=== PATIENT | male | born 1955 | race American Indian/Alaskan Native ===

== ENCOUNTER 2019-05-11 09:12 | Day surgery (SDC) | payer OTHER ==
[~2019-05-11 09:12] MED LIST: SODIUM CHLORIDE 0.9% 1000 ML 1,000 ML IV SCH
[2019-05-11] MEDS ORDERED: MIDAZOLAM 2 MG/2 ML INJ ONE (09:56)
--- NOTE | 2019-05-11 10:03 | Anesthesia Day of Surgery ---
Anesthesia Day of Surgery - Day of Surgery Patient Examined: Yes Patient H&P Reviewed: Yes Patient is NPO: Yes
--- NOTE | 2019-05-11 10:07 | Anesthesia Consultation ---
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
[2019-05-11] MEDS ORDERED: WATER FOR IRRIG STERILE 250 ML BOTTLE IR ONE (10:19)
[2019-05-11] MEDS ORDERED: PROPOFOL 200 MG/20 ML VIAL IV ONE ×2 (10:30)
--- NOTE | 2019-05-11 11:14 | Procedure Note ---
Date of procedure: 05/11/19 Pre-op diagnosis: Colon Polyp Screening and P/H/O colon Polyps Post-op diagnosis: other (Multiple Smal Recto-Sigmoid and Descending colon Poyps (possibly Hyperplastic) and one Medium sized Ascending Colon) Procedure: Colonoscopy with Cold Biopsy and Cold Snare Polypectomy Anesthesia: MAC Surgeon: RALPH CATALAN Estimated blood loss: minimal Pathology: list Specimen disposition: to lab Condition: stable Disposition: same day (Multiple smal Recto S-gmoid and Descending colon Polyps (possibly Hyperplastic) and one Medium Descending colon Polyp (possilby tubular adnenoma)/Minor,Left Colon diverticuli and Mild to Moderate Internal Hemorrhoid)
--- NOTE | 2019-05-11 11:33 | Operative Report ---
PROCEDURE: Colonoscopy with biopsy and cold snare polypectomy. INDICATIONS: A 63-year-old gentleman who has prior history of colon polyp. Last colonoscopy was several years ago. Colonoscopy was done to make sure there was not any recurrence of any polyps. DESCRIPTION OF PROCEDURE: Procedure was done after getting informed consent with MAC anesthesia. Initial rectal exam was unremarkable. Instrument was passed through the rectum onto the cecum, which was identified with ileocecal valve and appendiceal orifice. Visualization was fair to good. The cecum showed normal mucosa. In the ascending colon, there was a 10 mm sessile polyp removed by cold snare polypectomy and retrieved. There was a smaller 7-8 mm polyp noted in the mid transverse colon that was removed by cold biopsy, which may have been hyperplastic in type and the remaining part of the transverse colon showed normal mucosa. There were a few minor diverticula noted in the left colon. In the descending colon, there was 1 small polyp also about 7 mm in diameter, removed by cold biopsy and the rectosigmoid area had several small possibly hyperplastic polyps, similarly removed by cold biopsy. There was minimal bleeding from the biopsy sites and no complications associated with the procedure. ASSESSMENT: Colon polyp screening, past history of colon polyps, multiple small polyps involving the rectosigmoid and left colon, possibly hyperplastic in type, 1 medium sized polyp in the ascending colon that was removed by cold snare polypectomy and possibly may have been a tubular adenoma. There was minor left colon diverticula and mild to moderate internal hemorrhoid. There was minimal bleeding from the polypectomy sites and no complications associated with the procedure. The patient will be asked to avoid aspirin and aspirin-related products and anticoagulants for the next 4 days, but resume home medication. The patient will also be encouraged to take fiber supplements and follow up in the office in 1-2 weeks' time. The procedure was done in the GI lab with assistance of the GI lab team, which included RN, Noy Stout, bertrand Guerra and with assistance of anesthesia. JOB# [id number] GAUDENCIO/LAURITA
[2019-05-11 11:37] VITALS: BP 135/87
--- NOTE | 2019-05-11 11:51 | Post Anesthesia Evaluation ---
- Post Anesthesia Evaluation Patient Participated: Yes Airway Patent: Yes Stable Respiratory Function: Yes Nausea/Vomiting: No Temp > 96.8F: Yes Pain Manageable: Yes Adequeate Hydration: Yes Anesthesia Complications: No Block Receding Appropriately: Not Applicable Patient on Ventilator: No
== END 2019-05-11 09:13 | disposition home or self-care (01) ==
LOC: GIO 09:12
DX: Z12.11 Encounter for screening for malignant neoplasm of colon (principal); D12.2 Benign neoplasm of ascending colon; K63.89 Other specified diseases of intestine; K57.30 Diverticulosis of large intestine without perforation or abscess without bleeding; K64.8 Other hemorrhoids; G47.30 Sleep apnea, unspecified; E78.00 Pure hypercholesterolemia, unspecified; I12.9 Hypertensive chronic kidney disease with stage 1 through stage 4 chronic kidney disease, or unspecified chronic kidney disease; N18.9 Chronic kidney disease, unspecified; M10.9 Gout, unspecified; I25.10 Atherosclerotic heart disease of native coronary artery without angina pectoris; K21.9 Gastro-esophageal reflux disease without esophagitis; Z79.82 Long term (current) use of aspirin; Z79.899 Other long term (current) drug therapy; Z98.890 Other specified postprocedural states
CPT/HCPCS: 88305; J2250; J2704; J7030